=== PATIENT | female | born 1995 | race Caucasian/White ===

== ENCOUNTER → 2016-10-29 | Outpatient (REF) | payer OTHER ==
[~2016-10-29] MED LIST: /MOM400 PO; ACET50TA PO; DOCU10ELUD PO; IBUP100SUS PO
== END ==
LOC: M SFHCLERA 11:19
PROVIDERS: ATTEND Nurse Practitioner Family
DX: J02.9 Acute pharyngitis, unspecified (principal); Z3A.11 11 weeks gestation of pregnancy

== ENCOUNTER 2016-11-13 20:18 | Emergency (ER) | payer OTHER ==
[2016-11-13] MEDS ORDERED: METOCLOPRAMIDE INJ 10MG/2ML VIAL (J2765) As Ordered ONE (23:11)
[2016-11-13 23:17] LABS: MEAN CORPUSCULAR VOLUME 85.8 fl (80.0-96.0); RED CELL DISTRIBUTION WIDTH 14.5 % (11.5-14.5); WHITE BLOOD COUNT 11.7 K/mm3 (4.0-10.0)
[2016-11-14] LABS: ALBUMIN 3.6 GM/DL (3.2-5.2); ALBUMIN/GLOBULIN RATIO 0.84 (1.00-1.93); ALKALINE PHOSPHATASE 81 U/L (45-117); ALT/SGPT 18 U/L (12-78); ANION GAP 9 MEQ/L (8-16); AST/SGOT 11 U/L (15-37); BILIRUBIN,TOTAL 0.5 MG/DL (0.2-1.0); BLOOD UREA NITROGEN 5 MG/DL (7-18); CALCIUM LEVEL 8.6 MG/DL (8.5-10.1); CARBON DIOXIDE LEVEL 25 MEQ/L (21-32); CHLORIDE LEVEL 103 MEQ/L (98-107); CREATININE FOR GFR 0.64 MG/DL (0.55-1.02); GLOMERULAR FILTRATION RATE > 60.0 (>60); GLUCOSE, FASTING 81 MG/DL (70-105); HCG, SERUM QUANTITATIVE 48169 MIU/ML; POTASSIUM SERUM 3.4 MEQ/L (3.5-5.1); SODIUM LEVEL 137 MEQ/L (136-145); TOTAL PROTEIN 7.9 GM/DL (6.4-8.2)
[2016-11-14] MEDS ORDERED: NITROFURANTOIN (MACROBID) 100 MG CAP As Ordered ONE (00:27)
--- NOTE | 2016-11-14 00:42 | EDDOCDS ---
Physician Documentation [facility] Name: Cheryl Pisano Age: 21 yrs Sex: Female : 1995 Arrival Date: 11/13/2016 Time: 20:18 Bed I6 / Private MD: Marbella Randall Disposition: 11/14/16 00:23 Discharged to Home/Self Care. Impression: related conditions, unspecified, first trimester, Urinary tract infection, site not specified, Pelvic and perineal pain. - Condition is Stable. - Discharge Instructions: Pelvic Pain, Female, First Trimester of , Jqvs-[id number], Urinary Tract Infection, Bsuw-[id number]. - Prescriptions for Macrobid 100 mg Oral Capsule - take 100 milligram by ORAL route every 12 hours for 10 days; 20 capsule. Reglan 10 mg Oral Tablet - take 1 tablet by ORAL route every 6 hours take 30 minutes before meals and at bedtime; 20 tablet. - Medication Reconciliation, Local Pharmacy Hours form. - Follow up: Raghav Olvera; When: 1 - 2 days; Reason: Further diagnostic work-up, Recheck today's complaints, Continuance of care. Follow up: Emergency Department; Reason: Worsening of conditions. - Problem is new. - Symptoms have improved. Historical: - Allergies: no known allergies; - Home Meds: 1. none - PMHx: none; - PSHx: Cholecystectomy; - Social history: Smoking status: Patient states was never smoker of tobacco. No barriers to communication noted, The patient speaks fluent Cypriot. - Family history: Not pertinent. - : The pt / caregiver states he / she is not on anticoagulants. Home medication list is obtained from the patient. - Exposure Risk Screening:: None identified. 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 5 in. (165.10 cm) (R); Pain 8; 11/14 00:30 BP 124 / 82; Pulse 61; Resp 18; Pulse Ox 97% on R/A; Pain 0/10; m 11/13 20:20 Body Mass Index 35.61 (97.07 kg, 165.10 cm) gr2 MDM: 11/13 22:50 IV Saline Lock ordered. ef1 22:50 Undress patient appropriately for examination ordered. ef1 22:50 NS 0.9% 1000 ml IV at bolus once ordered. ef1 22:50 Metoclopramide 10 mg IV at 40 mg/hr once over 15 mins ordered. ef1 22:51 Complete Blood Count Ordered. EDMS 22:51 Hcg, Serum Quantitative Ordered. EDMS 22:51 Urinalysis Ordered. EDMS 22:51 Complete Comphrensive Metabolic Ordered. EDMS 22:51 Urine Culture Ordered. EDMS 22:51 US 1st trimester Ordered. EDMS 22:51 Type & Screen Ordered. EDMS 23:12 Financial registration complete. [facility] 23:16 [facility] Payment Agreement was scanned into [employer] and attached to record. gjb 23:59 Complete Blood Count Reviewed. ef1 23:59 Urinalysis Reviewed. ef1 23:59 Type & Screen Reviewed. ef1 11/14 00:03 Complete Comphrensive Metabolic Reviewed. ef1 00:03 Hcg, Serum Quantitative Reviewed. ef1 00:21 Type & Screen Reviewed. ef1 00:23 Nitrofurantoin 100 mg PO once ordered. ef1 Administered Medications: 11/13 23:19 Drug: NS 0.9% 1000 ml [sodium chloride 0.9 % intravenous solution] Route: IV; Rate: slm bolus; Site: right antecubital; 23:19 Drug: Metoclopramide 10 mg [metoclopramide 5 mg/mL injection solution] Route: IV; Rate: slm 40 mg/hr; Infused Over: 15 mins; Site: right antecubital; 11/14 00:31 Follow up: Response: Nausea is resolved slm 00:31 Drug: Nitrofurantoin 100 mg Route: PO; af2 Signatures: Dispatcher [employer] EDMS Zohreh Samayoa PA-C PA-C ef1 Mandy CalixtoRN RN af2 Sara Garcíab Blaire Matta RN RN tm5 Fernanda Herrera LPN [facility] The chart was reviewed and I authenticate all verbal orders and agree with the evaluation and treatment provided.Attachments: 11/13 23:16 [facility] Payment Agreement gjb [facility]
--- NOTE | 2016-11-14 00:42 | EDDOCDS ---
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 Risk factors: the patient reports no vaginal bleeding. Adult Sepsis Screening: The patient does not have new or worsening altered mentation. Patient's respiratory rate is less than 22. Systolic blood pressure is greater than 100. Patient has a qSOFA score of 0- Negative Sepsis Screen. Suicide/Homicide risk assessment- the patient denies having any suicidal and/or homicidal ideations and does not present with any other emotional, behavioral or mental health complaints. 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 Transition of care: patient was not received from another setting of care. 20:23 Acuity: BERNARDA Level 3 tm5 20:23 Method Of Arrival: Walkin/Carried/Asstd tm5 Triage Assessment: 20:26 General: Appears. General: Appears in no apparent distress, Behavior is appropriate for tm5 age, cooperative. Pain: Location: right lower quadrant and left lower quadrant, LOWER PELVIC AREA Pain currently is 8 out of 10 on a pain scale. Quality of pain is described as sharp. Pt Declines HIV testing. Neurological: Level of Consciousness is awake, alert, Oriented to person, place, time. Respiratory: Airway is patent Respiratory effort is even, unlabored, Respiratory pattern is regular, symmetrical. GI: Abdomen is non- distended Reports lower abdominal pain, nausea, vomiting. : No deficits noted. Derm: Skin is pink, warm & dry. normal. 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 none - PMHx: none; - PSHx: Cholecystectomy; - Social history: Smoking status: Patient states was never smoker of tobacco. No barriers to communication noted, The patient speaks fluent Mohawk. - Family history: Not pertinent. - : The pt / caregiver states he / she is not on anticoagulants. Home medication list is obtained from the patient. - Exposure Risk Screening:: None identified. Screenin:29 Screening information is obtained from the patient. Fall risk: No risks identified. tm5 Assistance ADL's: requires no assistance with activities of daily living. Abuse/DV Screen: The patient / caregiver reports he/she is: not in a situation that causes fear, pain or injury. Nutritional screening: No deficits noted. Advance Directives: There is no active DNR order. home support is adequate. Assessment: 23:19 General: Appears in no apparent distress, comfortable, Behavior is cooperative. slm General: pt c/o nausea and vomiting reports x13 weeks no active vomiting at this time . Derm: Skin is pink, warm & dry. Vital Signs: 20:20 BP 116 / 64; Pulse 90; Resp 18 S; Temp 97.4(O); Pulse Ox 100% on R/A; Weight 97.07 kg gr2 (M); Height 5 ft. 5 in. (165.10 cm) (R); Pain 8/10; 11/14 00:30 BP 124 / 82; Pulse 61; Resp 18; Pulse Ox 97% on R/A; Pain 0/10; slm 11/13 20:20 Body Mass Index 35.61 (97.07 kg, 165.10 cm) gr2 Vitals: 11/13 20:20 Log In Time: November 13, 2016 at 20:20. gr2 ED Course: 20:20 Patient visited by Aj Georges. gr2 20:20 Marbella Randall RNNP is Private Physician. gr2 20:20 Patient moved to Waiting gr2 20:23 Patient visited by Aj Georges. gr2 20:23 Patient moved to Pre RCE gr2 20:25 Triage Initiated tm5 22:15 Patient moved to Triage 3 ck1 22:18 Patient visited by Billie Cesar RN. ck1 22:42 Zohreh Samayoa PA-C is PHCP. ef1 22:42 Clyde Pickard DO is Attending Physician. ef1 22:42 Patient visited by Zohreh Samayoa PA-C. ef1 22:53 Patient moved to nn1 23:02 Patient visited by Zohreh Samayoa PA-C. ef1 23:07 Fernanda Herrear LPN is Primary Nurse. slm 23:07 Complete Comphrensive Metabolic Sent. slm 23:07 Complete Blood Count Sent. slm 23:07 Hcg, Serum Quantitative Sent. slm 23:08 Patient visited by Fernanda Herrera LPN. slm 23:08 Type & Screen Sent. slm 23:08 Inserted saline lock: 20 gauge in right antecubital area and blood collected. The sl patient tolerated the procedure well. 23:16 [facility] Payment Agreement was scanned into [employer] and attached to record. gjb 23:20 Patient visited by Fernanda Herrera LPN. slm 23:31 Patient visited by Zohreh Samayoa PA-C. ef1 23:58 Patient visited by Zohreh Samayoa PA-C. ef1 11/14 00:18 Patient visited by Zohreh Samayoa PA-C. ef1 00:23 Raghav Olvera MD is Referral Physician. ef1 00:30 Discontinued lock intact, bleeding controlled, pressure dressing applied, No slm redness/swelling at site. No procedures done that require assistance. 00:31 Patient visited by Fernanda Herrera LPN. slm 00:41 The patient / caregiver is instructed regarding the plan of care and ED course. af2 Administered Medications: 11/13 23:19 Drug: NS 0.9% 1000 ml [sodium chloride 0.9 % intravenous solution] Route: IV; Rate: slm bolus; Site: right antecubital; 23:19 Drug: Metoclopramide 10 mg [metoclopramide 5 mg/mL injection solution] Route: IV; Rate: slm 40 mg/hr; Infused Over: 15 mins; Site: right antecubital; 11/14 00:31 Follow up: Response: Nausea is resolved slm 00:31 Drug: Nitrofurantoin 100 mg Route: PO; af2 Order Results: Lab Order: Complete Blood Count; SPEC'M 11/13/16 22:59 Test: WHITE BLOOD COUNT; Value: 11.7; Range: 4.0-10.0; Abnormal: Above high normal; Units: K/mm3; Status: F Test: RED BLOOD COUNT; Value: 4.64; Range: 4.00-5.40; Units: M/mm3; Status: F Test: HEMOGLOBIN; Value: 13.9; Range: 12.0-16.0; Units: g/dl; Status: F Test: HEMATOCRIT; Value: 39.8; Range: 36.0-47.0; Units: %; Status: F Test: MEAN CORPUSCULAR VOLUME; Value: 85.8; Range: 80.0-96.0; Units: fl; Status: F Test: MEAN CORPUSCULAR HEMOGLOBIN; Value: 30.0; Range: 27.0-33.0; Units: pg; Status: F Test: MEAN CORPUSCULAR HGB CONC; Value: 35.0; Range: 32.0-36.5; Units: g/dl; Status: F Test: RED CELL DISTRIBUTION WIDTH; Value: 14.5; Range: 11.5-14.5; Units: %; Status: F Test: PLATELET COUNT, AUTOMATED; Value: 270; Range: 150-450; Units: k/mm3; Status: F Lab Order: Hcg, Serum Quantitative; [facility] 11/13/16 22:59 Test: HCG, SERUM QUANTITATIVE; Value: 51404; Units: MIU/ML; Status: F Test Note: ; GESTATIONAL AGE APPROXIMATE HCG RANGE (MIU/ML) 0.2-1 WEEK 5-50 1-2 WEEKS 50-500 2-3 WEEKS 100-5,000 3-4 WEEKS 500-10,000 4-5 WEEKS 1,000-50,000 5-6 WEEKS 10,000-100,000 6-8 WEEKS 15,000-200,000 2-3 MONTHS 10,000-100,000 NON FEMALES LESS THAN 3.0 Patient samples may contain human heterophilic antibodies that could react with immunoassays to give falsely elevated or depressed results. This assay has been designed to minimize interference from heterophilic antibodies. Elevated hCG levels have also been associated with trophoblastic disease and nontrophoblastic neoplasms. The possibility of having these diseases should be considered before a diagnosis of is made. This test is not intended for use as a surrogate marker for aiding in the diagnosis or monitoring the treatment of cancer patients. [employer] methodology. Lab Order: Type & Screen; SPEC'M 11/13/16 22:59 Test: BLOOD TYPE; Value: O POS; Status: F Test: AB SCREEN (INDIRECT JACINTO)GEL; Value: NEGATIVE; Status: F Lab Order: Urinalysis; SPEC'M 11/13/16 22:55 Test: APPEARANCE, URINE; Value: HAZY; Range: CLEAR; Status: F Test: COLOR, URINE; Value: YELLOW; Range: YELLOW; Status: F Test: PH,URINE; Value: 6.0; Range: 5.0-9.0; Units: UNITS; Status: F Test: SPECIFIC GRAVITY URINE AUTO; Value: 1.024; Range: 1.002-1.035; Status: F Test: PROTEIN, URINE AUTO; Value: NEGATIVE; Range: NEGATIVE; Units: mg/dL; Status: F Test: GLUCOSE, URINE (UA) AUTO; Value: NEGATIVE; Range: NEGATIVE; Units: mg/dL; Status: F Test: KETONE, URINE AUTO; Value: 2+; Range: NEGATIVE; Abnormal: Above high normal; Units: mg/dL; Status: F Test: UROBILINOGEN, URINE AUTO; Value: 0.2; Range: 0.0-2.0; Units: mg/dL; Status: F Test: BILIRUBIN, URINE AUTO; Value: NEGATIVE; Range: NEGATIVE; Status: F Test: NITRITE, URINE AUTO; Value: NEGATIVE; Range: NEGATIVE; Status: F Test: LEUKOCYTE ESTERASE, URINE AUTO; Value: TRACE; Range: NEGATIVE; Abnormal: Above high normal; Status: F Test: BLOOD, URINE BLOOD; Value: NEGATIVE; Range: NEGATIVE; Status: F Test: WBC, URINE AUTO; Value: 3; Range: 0-3; Units: /HPF; Status: F Test: RBC, URINE AUTO; Value: 3; Range: 0-3; Units: /HPF; Status: F Test: BACTERIA, URINE AUTO; Value: NEGATIVE; Range: NEGATIVE; Status: F Test: SQUAMOUS EPITHELIAL CELL UR AU; Value: 1; Range: 0-6; Units: /HPF; Status: F Test: MUCUS, URINE; Value: MODERATE; Range: NEGATIVE; Status: F Test: HYALINE CAST, URINE AUTO; Value: 0; Range: 0-1; Units: /LPF; Status: F Lab Order: Complete Comphrensive Metabolic; SPEC'M 11/13/16 22:59 Test: GLUCOSE, FASTING; Value: 81; Range: 70-105; Units: MG/DL; Status: F Test: BLOOD UREA NITROGEN; Value: 5; Range: 7-18; Abnormal: Below low normal; Units: MG/DL; Status: F Test: CREATININE FOR GFR; Value: 0.64; Range: 0.55-1.02; Units: MG/DL; Status: F Test: GLOMERULAR FILTRATION RATE; Value: > 60.0; Range: >60; Status: F Test: SODIUM LEVEL; Value: 137; Range: 136-145; Units: MEQ/L; Status: F Test: POTASSIUM SERUM; Value: 3.4; Range: 3.5-5.1; Abnormal: Below low normal; Units: MEQ/L; Status: F Test: CHLORIDE LEVEL; Value: 103; Range: 98-107; Units: MEQ/L; Status: F Test: CARBON DIOXIDE LEVEL; Value: 25; Range: 21-32; Units: MEQ/L; Status: F Test: ANION GAP; Value: 9; Range: 8-16; Units: MEQ/L; Status: F Test: CALCIUM LEVEL; Value: 8.6; Range: 8.5-10.1; Units: MG/DL; Status: F Test: AST/SGOT; Value: 11; Range: 15-37; Abnormal: Below low normal; Units: U/L; Status: F Test: ALT/SGPT; Value: 18; Range: 12-78; Units: U/L; Status: F Test: ALKALINE PHOSPHATASE; Value: 81; Range: 45-117; Units: U/L; Status: F Test: BILIRUBIN,TOTAL; Value: 0.5; Range: 0.2-1.0; Units: MG/DL; Status: F Test: TOTAL PROTEIN; Value: 7.9; Range: 6.4-8.2; Units: GM/DL; Status: F Test: ALBUMIN; Value: 3.6; Range: 3.2-5.2; Units: GM/DL; Status: F Test: ALBUMIN/GLOBULIN RATIO; Value: 0.84; Range: 1.00-1.93; Abnormal: Below low normal; Status: F Test Note: ; Units are mL/min/1.73 m2 Chronic Kidney Disease Staging per NKF: Stage I & II GFR >=60 Normal to Mildly Decreased Stage III GFR 30-59 Moderately Decreased Stage IV GFR 15-29 Severely Decreased Stage V GFR <15 Very Little GFR Left ESRD GFR <15 on OPTOMETRIST ASSISTANT Outcome: 00:23 Discharge ordered by Provider. ef1 00:40 Discharge Assessment: Patient awake, alert and oriented x 3. No cognitive and/or af2 functional deficits noted. Patient verbalized understanding of disposition instructions. patient administered narcotics - yes. Pt provided with safe discharge. The following High Risk Discharge criteria are identified: None. Discharged to home ambulatory, with parent. Condition: stable. Discharge instructions given to patient, Instructed on discharge instructions, follow up and referral plans. medication usage, no driving heavy equipment, no drinking with medication, Demonstrated understanding of instructions, medications, Pt was receptive of discharge instructions/ teaching. No special radiology studies were completed. Property :Personal belongings accompany Pt. 00:41 Patient left the ED. af2 Signatures: Billie Cesar,RN RN ck1 Zohreh Samayoa PA-C PA-C ef1 Aj Georges gr2 Fernanda Herrera LPN LPN slm F[place]on, Amber, RN RN af2 Mario Yarbrough RN RN ernesto1 Sara aGrcía Blaire Matta,RN RN tm5 MTDD
--- NOTE | 2016-11-14 01:00 | REPUSA ---
CLINICAL HISTORY: determination. TECHNIQUE: Transabdominal ultrasound of the pelvis was performed. FINDINGS: Single, live intrauterine gestation. Estimated gestational age is 12 weeks and 2 days. [place]-rump pb gth 5.7 cm. heart rate 157 beats per minute. motion was observed. No evidence of subchori onic hemorrhage. Anterior placenta. Unremarkable maternal adnexa. IMPRESSION: Single, live intrauterine gestation. No abnormality is seen.
--- NOTE | 2016-11-16 01:42 | EDDOCDS ---
Physician Documentation [facility] Name: Cheryl Pisano Age: 21 yrs Sex: Female : 1995 Arrival Date: 11/13/2016 Time: 20:18 Bed I6 / Private MD: Marbella Randall Disposition: 11/14/16 00:23 Discharged to Home/Self Care. Impression: related conditions, unspecified, first trimester, Urinary tract infection, site not specified, Pelvic and perineal pain. - Condition is Stable. - Discharge Instructions: Pelvic Pain, Female, First Trimester of , [id number], Urinary Tract Infection, Tyjl-[id number]-[id number]. - Prescriptions for Macrobid 100 mg Oral Capsule - take 100 milligram by ORAL route every 12 hours for 10 days; 20 capsule. Reglan 10 mg Oral Tablet - take 1 tablet by ORAL route every 6 hours take 30 minutes before meals and at bedtime; 20 tablet. - Medication Reconciliation, Local Pharmacy Hours form. - Follow up: Raghav Olvera; When: 1 - 2 days; Reason: Further diagnostic work-up, Recheck today's complaints, Continuance of care. Follow up: Emergency Department; Reason: Worsening of conditions. - Problem is new. - Symptoms have improved. Historical: - Allergies: no known allergies; - Home Meds: 1. none - PMHx: none; - PSHx: Cholecystectomy; - Social history: Smoking status: Patient states was never smoker of tobacco. No barriers to communication noted, The patient speaks fluent Argentine. - Family history: Not pertinent. - : The pt / caregiver states he / she is not on anticoagulants. Home medication list is obtained from the patient. - Exposure Risk Screening:: None identified. 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 5 in. (165.10 cm) (R); Pain 8; 11/14 00:30 BP 124 / 82; Pulse 61; Resp 18; Pulse Ox 97% on R/A; Pain 0/10; [facility] 11/13 20:20 Body Mass Index 35.61 (97.07 kg, 165.10 cm) gr2 MDM: 11/13 22:50 IV Saline Lock ordered. ef1 22:50 Undress patient appropriately for examination ordered. ef1 22:50 NS 0.9% 1000 ml IV at bolus once ordered. ef1 22:50 Metoclopramide 10 mg IV at 40 mg/hr once over 15 mins ordered. ef1 22:51 Complete Blood Count Ordered. EDMS 22:51 Hcg, Serum Quantitative Ordered. EDMS 22:51 Urinalysis Ordered. EDMS 22:51 Complete Comphrensive Metabolic Ordered. EDMS 22:51 Urine Culture Ordered. EDMS 22:51 US 1st trimester Ordered. EDMS 22:51 Type & Screen Ordered. EDMS 23:12 Financial registration complete. gjb 23:16 [facility] Payment Agreement was scanned into [employer] and attached to record. gjb 23:59 Complete Blood Count Reviewed. ef1 23:59 Urinalysis Reviewed. ef1 23:59 Type & Screen Reviewed. ef1 11/14 00:03 Complete Comphrensive Metabolic Reviewed. ef1 00:03 Hcg, Serum Quantitative Reviewed. ef1 00:21 Type & Screen Reviewed. ef1 00:23 Nitrofurantoin 100 mg PO once ordered. ef1 09:57 T-Sheet-- Draft Copy was scanned into [employer] and attached to record. gb Administered Medications: 11/13 23:19 Drug: NS 0.9% 1000 ml [sodium chloride 0.9 % intravenous solution] Route: IV; Rate: slm bolus; Site: right antecubital; 23:19 Drug: Metoclopramide 10 mg [metoclopramide 5 mg/mL injection solution] Route: IV; Rate: slm 40 mg/hr; Infused Over: 15 mins; Site: right antecubital; 11/14 00:31 Follow up: Response: Nausea is resolved slm 00:31 Drug: Nitrofurantoin 100 mg Route: PO; af2 Signatures: Dispatcher [employer] EDMS Brittani Gonzales, Porter Reg gb Zohreh Samayoa, PA-C PA-C ef1 Mandy Calixto RN RN af2 Sara García gjb Blaire Matta RN RN tm5 Fernanda Herrera LPN slm The chart was reviewed and I authenticate all verbal orders and agree with the evaluation and treatment provided.Attachments: 11/13 23:16 [facility] Payment Agreement gjb 11/14 09:57 T-Sheet-- Draft Copy gb Chart Complete MTDD
--- NOTE | 2016-11-16 01:43 | EDDOCDS ---
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 Risk factors: the patient reports no vaginal bleeding. Adult Sepsis Screening: The patient does not have new or worsening altered mentation. Patient's respiratory rate is less than 22. Systolic blood pressure is greater than 100. Patient has a qSOFA score of 0- Negative Sepsis Screen. Suicide/Homicide risk assessment- the patient denies having any suicidal and/or homicidal ideations and does not present with any other emotional, behavioral or mental health complaints. Status: Patient is not a guest services coordinator or dependent. Transition of care: patient was not received from another setting of care. 20:23 Acuity: BERNARDA Level 3 tm5 20:23 Method Of Arrival: Walkin/Carried/Asstd tm5 Triage Assessment: 20:26 General: Appears. General: Appears in no apparent distress, Behavior is appropriate for tm5 age, cooperative. Pain: Location: right lower quadrant and left lower quadrant, LOWER PELVIC AREA Pain currently is 8 out of 10 on a pain scale. Quality of pain is described as sharp. Pt Declines HIV testing. Neurological: Level of Consciousness is awake, alert, Oriented to person, place, time. Respiratory: Airway is patent Respiratory effort is even, unlabored, Respiratory pattern is regular, symmetrical. GI: Abdomen is non- distended Reports lower abdominal pain, nausea, vomiting. : No deficits noted. Derm: Skin is pink, warm & dry. normal. HYDRAULIC PRESS OPERATOR: 20:26 LMP 09/09/2016, Verified, EDC 06/16/2017, Gestational age from LMP: 9 weeks 3 tm5 days Historical: - Allergies: no known allergies; - Home Meds: 1. none - PMHx: none; - PSHx: Cholecystectomy; - Social history: Smoking status: Patient states was never smoker of tobacco. No barriers to communication noted, The patient speaks fluent Persian. - Family history: Not pertinent. - : The pt / caregiver states he / she is not on anticoagulants. Home medication list is obtained from the patient. - Exposure Risk Screening:: None identified. Screenin:29 Screening information is obtained from the patient. Fall risk: No risks identified. tm5 Assistance ADL's: requires no assistance with activities of daily living. Abuse/DV Screen: The patient / caregiver reports he/she is: not in a situation that causes fear, pain or injury. Nutritional screening: No deficits noted. Advance Directives: There is no active DNR order. home support is adequate. Assessment: 23:19 General: Appears in no apparent distress, comfortable, Behavior is cooperative. slm General: pt c/o nausea and vomiting reports x13 weeks no active vomiting at this time . Derm: Skin is pink, warm & dry. Vital Signs: 20:20 BP 116 / 64; Pulse 90; Resp 18 S; Temp 97.4(O); Pulse Ox 100% on R/A; Weight 97.07 kg gr2 (M); Height 5 ft. 5 in. (165.10 cm) (R); Pain 8/10; 11/14 00:30 BP 124 / 82; Pulse 61; Resp 18; Pulse Ox 97% on R/A; Pain 0/10; slm 11/13 20:20 Body Mass Index 35.61 (97.07 kg, 165.10 cm) gr2 Vitals: 11/13 20:20 Log In Time: November 13, 2016 at 20:20. gr2 ED Course: 20:20 Patient visited by Aj Georges. gr2 20:20 Marbella Randall RNNP is Private Physician. gr2 20:20 Patient moved to Waiting gr2 20:23 Patient visited by Aj Georges. gr2 20:23 Patient moved to Pre RCE gr2 20:25 Triage Initiated tm5 22:15 Patient moved to Triage 3 ck1 22:18 Patient visited by Billie Cesar RN. ck1 22:42 Zohreh Samayoa PA-C is PHCP. ef1 22:42 Clyde Pickard DO is Attending Physician. ef1 22:42 Patient visited by Zohreh Samayoa PA-C. ef1 22:53 Patient moved to nn1 23:02 Patient visited by Zohreh Samayoa PA-C. ef1 23:07 Fernanda Herrera LPN is Primary Nurse. slm 23:07 Complete Comphrensive Metabolic Sent. slm 23:07 Complete Blood Count Sent. slm 23:07 Hcg, Serum Quantitative Sent. slm 23:08 Patient visited by Fernanda Herrera LPN. slm 23:08 Type & Screen Sent. slm 23:08 Inserted saline lock: 20 gauge in right antecubital area and blood collected. The slm patient tolerated the procedure well. 23:16 [facility] Payment Agreement was scanned into [employer] and attached to record. gjb 23:20 Patient visited by Fernanda Herrera LPN. slm 23:31 Patient visited by Zohreh Samayoa PA-C. ef1 23:58 Patient visited by Zohreh Samayoa PA-C. ef1 11/14 00:18 Patient visited by Zohreh Samayoa PA-C. ef1 00:23 Raghav Olvera MD is Referral Physician. ef1 00:30 Discontinued lock intact, bleeding controlled, pressure dressing applied, No slm redness/swelling at site. No procedures done that require assistance. 00:31 Patient visited by Fernanda Herrera LPN. slm 00:41 The patient / caregiver is instructed regarding the plan of care and ED course. af2 01:18 US 1st trimester Returned. EDMS 09:57 T-Sheet-- Draft Copy was scanned into [employer] and attached to record. gb Administered Medications: 11/13 23:19 Drug: NS 0.9% 1000 ml [sodium chloride 0.9 % intravenous solution] Route: IV; Rate: slm bolus; Site: right antecubital; 23:19 Drug: Metoclopramide 10 mg [metoclopramide 5 mg/mL injection solution] Route: IV; Rate: slm 40 mg/hr; Infused Over: 15 mins; Site: right antecubital; 11/14 00:31 Follow up: Response: Nausea is resolved slm 00:31 Drug: Nitrofurantoin 100 mg Route: PO; af2 Order Results: Lab Order: Complete Blood Count; [facility] 11/13/16 22:59 Test: WHITE BLOOD COUNT; Value: 11.7; Range: 4.0-10.0; Abnormal: Above high normal; Units: K/mm3; Status: F Test: RED BLOOD COUNT; Value: 4.64; Range: 4.00-5.40; Units: M/mm3; Status: F Test: HEMOGLOBIN; Value: 13.9; Range: 12.0-16.0; Units: g/dl; Status: F Test: HEMATOCRIT; Value: 39.8; Range: 36.0-47.0; Units: %; Status: F Test: MEAN CORPUSCULAR VOLUME; Value: 85.8; Range: 80.0-96.0; Units: fl; Status: F Test: MEAN CORPUSCULAR HEMOGLOBIN; Value: 30.0; Range: 27.0-33.0; Units: pg; Status: F Test: MEAN CORPUSCULAR HGB CONC; Value: 35.0; Range: 32.0-36.5; Units: g/dl; Status: F Test: RED CELL DISTRIBUTION WIDTH; Value: 14.5; Range: 11.5-14.5; Units: %; Status: F Test: PLATELET COUNT, AUTOMATED; Value: 270; Range: 150-450; Units: k/mm3; Status: F Lab Order: Hcg, Serum Quantitative; [facility] 11/13/16 22:59 Test: HCG, SERUM QUANTITATIVE; Value: 01536; Units: MIU/ML; Status: F Test Note: ; GESTATIONAL AGE APPROXIMATE HCG RANGE (MIU/ML) 0.2-1 WEEK 5-50 1-2 WEEKS 50-500 2-3 WEEKS 100-5,000 3-4 WEEKS 500-10,000 4-5 WEEKS 1,000-50,000 5-6 WEEKS 10,000-100,000 6-8 WEEKS 15,000-200,000 2-3 MONTHS 10,000-100,000 NON FEMALES LESS THAN 3.0 Patient samples may contain human heterophilic antibodies that could react with immunoassays to give falsely elevated or depressed results. This assay has been designed to minimize interference from heterophilic antibodies. Elevated hCG levels have also been associated with trophoblastic disease and nontrophoblastic neoplasms. The possibility of having these diseases should be considered before a diagnosis of is made. This test is not intended for use as a surrogate marker for aiding in the diagnosis or monitoring the treatment of cancer patients. Siemens JibJab methodology. Lab Order: Type & Screen; [facility] 11/13/16 22:59 Test: BLOOD TYPE; Value: O POS; Status: F Test: AB SCREEN (INDIRECT JACINTO)GEL; Value: NEGATIVE; Status: F Lab Order: Urinalysis; [facility] 11/13/16 22:55 Test: APPEARANCE, URINE; Value: HAZY; Range: CLEAR; Status: F Test: COLOR, URINE; Value: YELLOW; Range: YELLOW; Status: F Test: PH,URINE; Value: 6.0; Range: 5.0-9.0; Units: UNITS; Status: F Test: SPECIFIC GRAVITY URINE AUTO; Value: 1.024; Range: 1.002-1.035; Status: F Test: PROTEIN, URINE AUTO; Value: NEGATIVE; Range: NEGATIVE; Units: mg/dL; Status: F Test: GLUCOSE, URINE (UA) AUTO; Value: NEGATIVE; Range: NEGATIVE; Units: mg/dL; Status: F Test: KETONE, URINE AUTO; Value: 2+; Range: NEGATIVE; Abnormal: Above high normal; Units: mg/dL; Status: F Test: UROBILINOGEN, URINE AUTO; Value: 0.2; Range: 0.0-2.0; Units: mg/dL; Status: F Test: BILIRUBIN, URINE AUTO; Value: NEGATIVE; Range: NEGATIVE; Status: F Test: NITRITE, URINE AUTO; Value: NEGATIVE; Range: NEGATIVE; Status: F Test: LEUKOCYTE ESTERASE, URINE AUTO; Value: TRACE; Range: NEGATIVE; Abnormal: Above high normal; Status: F Test: BLOOD, URINE BLOOD; Value: NEGATIVE; Range: NEGATIVE; Status: F Test: WBC, URINE AUTO; Value: 3; Range: 0-3; Units: /HPF; Status: F Test: RBC, URINE AUTO; Value: 3; Range: 0-3; Units: /HPF; Status: F Test: BACTERIA, URINE AUTO; Value: NEGATIVE; Range: NEGATIVE; Status: F Test: SQUAMOUS EPITHELIAL CELL UR AU; Value: 1; Range: 0-6; Units: /HPF; Status: F Test: MUCUS, URINE; Value: MODERATE; Range: NEGATIVE; Status: F Test: HYALINE CAST, URINE AUTO; Value: 0; Range: 0-1; Units: /LPF; Status: F Lab Order: Urine Culture; [facility] 11/13/16 22:55 Test: URINE CULTURE; Value: URINE CULTURE RESULT NO GROWTH; Status: F Lab Order: Complete Comphrensive Metabolic; [facility] 11/13/16 22:59 Test: GLUCOSE, FASTING; Value: 81; Range: 70-105; Units: MG/DL; Status: F Test: BLOOD UREA NITROGEN; Value: 5; Range: 7-18; Abnormal: Below low normal; Units: MG/DL; Status: F Test: CREATININE FOR GFR; Value: 0.64; Range: 0.55-1.02; Units: MG/DL; Status: F Test: GLOMERULAR FILTRATION RATE; Value: > 60.0; Range: >60; Status: F Test: SODIUM LEVEL; Value: 137; Range: 136-145; Units: MEQ/L; Status: F Test: POTASSIUM SERUM; Value: 3.4; Range: 3.5-5.1; Abnormal: Below low normal; Units: MEQ/L; Status: F Test: CHLORIDE LEVEL; Value: 103; Range: 98-107; Units: MEQ/L; Status: F Test: CARBON DIOXIDE LEVEL; Value: 25; Range: 21-32; Units: MEQ/L; Status: F Test: ANION GAP; Value: 9; Range: 8-16; Units: MEQ/L; Status: F Test: CALCIUM LEVEL; Value: 8.6; Range: 8.5-10.1; Units: MG/DL; Status: F Test: AST/SGOT; Value: 11; Range: 15-37; Abnormal: Below low normal; Units: U/L; Status: F Test: ALT/SGPT; Value: 18; Range: 12-78; Units: U/L; Status: F Test: ALKALINE PHOSPHATASE; Value: 81; Range: 45-117; Units: U/L; Status: F Test: BILIRUBIN,TOTAL; Value: 0.5; Range: 0.2-1.0; Units: MG/DL; Status: F Test: TOTAL PROTEIN; Value: 7.9; Range: 6.4-8.2; Units: GM/DL; Status: F Test: ALBUMIN; Value: 3.6; Range: 3.2-5.2; Units: GM/DL; Status: F Test: ALBUMIN/GLOBULIN RATIO; Value: 0.84; Range: 1.00-1.93; Abnormal: Below low normal; Status: F Test Note: ; Units are mL/min/1.73 m2 Chronic Kidney Disease Staging per NKF: Stage I & II GFR >=60 Normal to Mildly Decreased Stage III GFR 30-59 Moderately Decreased Stage IV GFR 15-29 Severely Decreased Stage V GFR <15 Very Little GFR Left ESRD GFR <15 on MEAT CLERK Radiology Order: US 1st trimester Test: US 1st trimester REASON FOR EXAMINATION: pelvic pain, ; ; CLINICAL HISTORY: determination.; TECHNIQUE: Transabdominal ultrasound of the pelvis was performed.; FINDINGS:; Single, live intrauterine gestation. Estimated gestational age is 12 weeks and 2 days. [place]-rump pb; gth 5.7 cm. heart rate 157 beats per minute. motion was observed. No evidence of subchori; onic hemorrhage. Anterior placenta. Unremarkable maternal adnexa.; IMPRESSION:; Single, live intrauterine gestation.; No abnormality is seen.; ; Outcome: 00:23 Discharge ordered by Provider. ef1 00:40 Discharge Assessment: Patient awake, alert and oriented x 3. No cognitive and/or af2 functional deficits noted. Patient verbalized understanding of disposition instructions. patient administered narcotics - yes. Pt provided with safe discharge. The following High Risk Discharge criteria are identified: None. Discharged to home ambulatory, with parent. Condition: stable. Discharge instructions given to patient, Instructed on discharge instructions, follow up and referral plans. medication usage, no driving heavy equipment, no drinking with medication, Demonstrated understanding of instructions, medications, Pt was receptive of discharge instructions/ teaching. No special radiology studies were completed. Property :Personal belongings accompany Pt. 00:41 Patient left the ED. af2 Signatures: Dispatcher [employer] EDBrittani Lagunas, Reg Reg gb Tali,Billie,RN RN ck1 Zohreh Samayoa, JAKOBC PA-C ef1 Aj Georges gr2 Fernanda eHrrera,CRYSTAL MEADEN Mandy Yu,RN RN af2 Mario Yarbrough,RN RN nn1 Sara García Tonya,RN RN tm5 Chart Complete MTDD
--- NOTE | 2016-11-16 01:43 | EDDOCDS ---
Physician Documentation [facility] Name: Cheryl Pisano Age: 21 yrs Sex: Female : 1995 Arrival Date: 11/13/2016 Time: 20:18 Bed I6 / Private MD: Marbella Randall Disposition: 11/14/16 00:23 Discharged to Home/Self Care. Impression: related conditions, unspecified, first trimester, Urinary tract infection, site not specified, Pelvic and perineal pain. - Condition is Stable. - Discharge Instructions: Pelvic Pain, Female, First Trimester of , [id number], Urinary Tract Infection, [id number]. - Prescriptions for Macrobid 100 mg Oral Capsule - take 100 milligram by ORAL route every 12 hours for 10 days; 20 capsule. Reglan 10 mg Oral Tablet - take 1 tablet by ORAL route every 6 hours take 30 minutes before meals and at bedtime; 20 tablet. - Medication Reconciliation, Local Pharmacy Hours form. - Follow up: Raghav Olvera; When: 1 - 2 days; Reason: Further diagnostic work-up, Recheck today's complaints, Continuance of care. Follow up: Emergency Department; Reason: Worsening of conditions. - Problem is new. - Symptoms have improved. Historical: - Allergies: no known allergies; - Home Meds: 1. none - PMHx: none; - PSHx: Cholecystectomy; - Social history: Smoking status: Patient states was never smoker of tobacco. No barriers to communication noted, The patient speaks fluent [place]. - Family history: Not pertinent. - : The pt / caregiver states he / she is not on anticoagulants. Home medication list is obtained from the patient. - Exposure Risk Screening:: None identified. SWITCHER: 11/13 20:26 LMP 09/09/2016, Verified, EDC 06/16/2017, Gestational age from LMP: 9 weeks 3 tm5 days Vital Signs: 20:20 BP 116 / 64; Pulse 90; Resp 18 S; Temp 97.4(O); Pulse Ox 100% on R/A; Weight 97.07 kg / gr2 214 lbs (M); Height 5 ft. 5 in. (165.10 cm) (R); Pain 8; 11/14 00:30 BP 124 / 82; Pulse 61; Resp 18; Pulse Ox 97% on R/A; Pain 0/10; [facility] 11/13 20:20 Body Mass Index 35.61 (97.07 kg, 165.10 cm) gr2 MDM: 11/13 22:50 IV Saline Lock ordered. ef1 22:50 Undress patient appropriately for examination ordered. ef1 22:50 NS 0.9% 1000 ml IV at bolus once ordered. ef1 22:50 Metoclopramide 10 mg IV at 40 mg/hr once over 15 mins ordered. ef1 22:51 Complete Blood Count Ordered. EDMS 22:51 Hcg, Serum Quantitative Ordered. EDMS 22:51 Urinalysis Ordered. EDMS 22:51 Complete Comphrensive Metabolic Ordered. EDMS 22:51 Urine Culture Ordered. EDMS 22:51 US 1st trimester Ordered. EDMS 22:51 Type & Screen Ordered. EDMS 23:12 Financial registration complete. gjb 23:16 [facility] Payment Agreement was scanned into [employer] and attached to record. gjb 23:59 Complete Blood Count Reviewed. ef1 23:59 Urinalysis Reviewed. ef1 23:59 Type & Screen Reviewed. ef1 11/14 00:03 Complete Comphrensive Metabolic Reviewed. ef1 00:03 Hcg, Serum Quantitative Reviewed. ef1 00:21 Type & Screen Reviewed. ef1 00:23 Nitrofurantoin 100 mg PO once ordered. ef1 09:57 T-Sheet-- Draft Copy was scanned into [employer] and attached to record. gb Administered Medications: 11/13 23:19 Drug: NS 0.9% 1000 ml [sodium chloride 0.9 % intravenous solution] Route: IV; Rate: slm bolus; Site: right antecubital; 23:19 Drug: Metoclopramide 10 mg [metoclopramide 5 mg/mL injection solution] Route: IV; Rate: slm 40 mg/hr; Infused Over: 15 mins; Site: right antecubital; 11/14 00:31 Follow up: Response: Nausea is resolved slm 00:31 Drug: Nitrofurantoin 100 mg Route: PO; af2 Signatures: Dispatcher [employer] EDMS Brittani Gonzales, Porter Reg gb Zohreh Samayoa, PA-C PA-C ef1 Mandy Calixto RN RN af2 Sara García gjb Blaire Matta RN RN tm5 Fernanda Herrera LPN slm The chart was reviewed and I authenticate all verbal orders and agree with the evaluation and treatment provided.Attachments: 11/13 23:16 [facility] Payment Agreement gjb 11/14 09:57 T-Sheet-- Draft Copy gb Chart Complete MTDD
== END 2016-11-14 00:41 | disposition home or self-care (01) ==
LOC: M ED 20:18
DX: O23.41 Unspecified infection of urinary tract in pregnancy, first trimester (principal); Z3A.09 9 weeks gestation of pregnancy
CPT/HCPCS: 36415; 76801; 80053; 81001; 84702; 85027; 86850; 86900; 86901; 87086; 96374; 99284; J2765

== ENCOUNTER → 2016-12-02 | Outpatient (REF) | payer OTHER ==
[2016-12-02 19:34] LABS: MEAN CORPUSCULAR HEMOGLOBIN 29.9 pg (27.0-33.0); MEAN CORPUSCULAR HGB CONC 33.3 g/dl (32.0-36.5); MEAN CORPUSCULAR VOLUME 89.6 fl (80.0-96.0); RED CELL DISTRIBUTION WIDTH 14.6 % (11.5-14.5); WHITE BLOOD COUNT 9.8 K/mm3 (4.0-10.0)
== END ==
LOC: M LAB REF 16:36
PROVIDERS: ATTEND Obstetrics & Gynecology
DX: Z36 Encounter for antenatal screening of mother (principal); Z3A.00 Weeks of gestation of pregnancy not specified

== ENCOUNTER 2016-12-25 18:56 | Emergency (ER) | payer OTHER ==
[~2016-12-25] VITALS: Ht 165.1 cm; Wt 97.5 kg
[~2016-12-25 18:56] MED LIST changes: -ZOFR4TAB3 PO
[2016-12-25] MEDS ORDERED: NS 1,000 ML IV ONE (22:45)
[2016-12-25] MEDS ORDERED: METOCLOPRAMIDE INJ 10MG/2ML VIAL (J2765) IV ONE (22:45)
[2016-12-25 23:12] LABS: BASO % 0.2 % (0.0-1.0); EOS # 0.2 K/mm3 (0.0-0.50); EOS % 1.5 % (0.0-3.0); LARGE UNSTAINED CELL # 0.2 K/mm3 (0.0-0.4); LARGE UNSTAINED CELL % 1.8 % (0.0-4.0); LYMPH # 2.2 K/mm3 (1.5-6.5); LYMPH % 20.1 % (24.0-44.0); MEAN CORPUSCULAR HEMOGLOBIN 29.9 pg (27.0-33.0); MEAN CORPUSCULAR HGB CONC 33.7 g/dl (32.0-36.5); MEAN CORPUSCULAR VOLUME 88.7 fl (80.0-96.0); MONO # 0.5 K/mm3 (0.0-0.8); NEUTROPHILS % 72.3 % (36.0-66.0); PLATELET COUNT, AUTOMATED 266 k/mm3 (150-450); RED CELL DISTRIBUTION WIDTH 14.2 % (11.5-14.5); WHITE BLOOD COUNT 11.1 K/mm3 (4.0-10.0)
[2016-12-25 23:37] LABS: ALBUMIN 3.3 GM/DL (3.2-5.2); ALBUMIN/GLOBULIN RATIO 0.72 (1.00-1.93); ALKALINE PHOSPHATASE 111 U/L (45-117); ALT/SGPT 17 U/L (12-78); ANION GAP 9 MEQ/L (8-16); AST/SGOT 9 U/L (15-37); BILIRUBIN,DIRECT 0.2 MG/DL (0.0-0.2); BILIRUBIN,TOTAL 0.7 MG/DL (0.2-1.0); BLOOD UREA NITROGEN 9 MG/DL (7-18); CARBON DIOXIDE LEVEL 24 MEQ/L (21-32); CHLORIDE LEVEL 103 MEQ/L (98-107); CREATININE FOR GFR 0.65 MG/DL (0.55-1.02); GLOMERULAR FILTRATION RATE > 60.0 (>60); GLUCOSE, FASTING 71 MG/DL (70-105); POTASSIUM SERUM 3.6 MEQ/L (3.5-5.1); SODIUM LEVEL 136 MEQ/L (136-145); TOTAL PROTEIN 7.9 GM/DL (6.4-8.2)
[2016-12-26 00:14] LABS: HCG, SERUM QUANTITATIVE 14926 MIU/ML
[2016-12-26] MEDS ORDERED: ZOFR4TAB3 PO (00:21)
[2016-12-26 00:28] VITALS: BP 121/71
--- NOTE | 2016-12-26 00:50 | REPUSA ---
CLINICAL HISTORY: Pelvic pain. TECHNIQUE: Realtime sonographic images were obtained in multiple projections via TA approach. The exa mination was performed by the stock order lister and still images were submitted for interpretation. COMMENTS: Single, live intrauterine gestation. Breech presentation. motion was identified. heart ra te 140 beats per minute. Anterior placenta. No evidence of placenta previa or placental abruption. Am niotic fluid is within normal limits. The cervix measures 3.1 cm in length. The lateral ventricle gilda sures 8.4 mm. No maternal adnexal mass lesion is noted. Estimated gestational age is 18 weeks and 2 d ays. Estimated delivery date on 05/26/17. gender was documented as made. Nuchal CORD was not seen . IMPRESSION: Single, live intrauterine gestation. No abnormality seen. Thank you for your kind referral of this patient.
== END 2016-12-26 00:35 | disposition home or self-care (01) ==
LOC: M ED 20:10
DX: O21.9 Vomiting of pregnancy, unspecified (principal); Z3A.18 18 weeks gestation of pregnancy; Z87.891 Personal history of nicotine dependence
CPT/HCPCS: 36415; 76811; 80048; 80076; 81001; 83690; 84702; 85025; 86850; 86900; 86901; 87086; 96374; 99283; J2765

== ENCOUNTER → 2016-12-25 | Outpatient (REF) | payer OTHER ==
[~2016-12-25] MED LIST changes: +ZOFR4TAB3 PO
== END ==
LOC: M SFHCLERA 18:39
PROVIDERS: ATTEND Nurse Practitioner Family
DX: R10.9 Unspecified abdominal pain (principal)

== ENCOUNTER 2017-03-11 14:01 | Outpatient (CLI) | payer OTHER ==
[~2017-03-11] VITALS: Ht 165.1 cm; Wt 99.0 kg
[~2017-03-11 14:01] MED LIST changes: +ZOFR4TAB3 PO
[2017-03-11 14:22] VITALS: BP 108/67
== END 2017-03-11 15:04 | disposition home or self-care (01) ==
LOC: M LDO 14:01
PROVIDERS: ATTEND Obstetrics & Gynecology
DX: O26.893 Other specified pregnancy related conditions, third trimester (principal); Z3A.29 29 weeks gestation of pregnancy

== ENCOUNTER → 2017-03-24 | Outpatient (REF) | payer OTHER | LOC: M LAB REF 16:26 | PROVIDERS: ATTEND Advanced Practice Midwife | DX: N76.0 Acute vaginitis (principal) ==

== ENCOUNTER → 2017-03-25 | Outpatient (CLI) | payer OTHER ==
[2017-03-25 13:45] LABS: MEAN CORPUSCULAR HEMOGLOBIN 30.1 pg (27.0-33.0); MEAN CORPUSCULAR HGB CONC 33.2 g/dl (32.0-36.5); MEAN CORPUSCULAR VOLUME 90.6 fl (80.0-96.0); RED CELL DISTRIBUTION WIDTH 13.7 % (11.5-14.5); WHITE BLOOD COUNT 11.8 K/mm3 (4.0-10.0)
[2017-03-25 13:56] LABS: ALT/SGPT 22 U/L (12-78); AST/SGOT 14 U/L (15-37); BILIRUBIN,TOTAL 0.5 MG/DL (0.2-1.0); CREATININE FOR GFR 0.59 MG/DL (0.55-1.02); GLOMERULAR FILTRATION RATE > 60.0 (>60); URIC ACID 3.2 MG/DL (2.6-6.0)
== END ==
LOC: M LAB 13:02
PROVIDERS: ATTEND Advanced Practice Midwife
DX: R03.0 Elevated blood-pressure reading, without diagnosis of hypertension (principal)

== ENCOUNTER → 2017-04-21 | Outpatient (REF) | payer OTHER | LOC: M LAB REF 17:15 | PROVIDERS: ATTEND Obstetrics & Gynecology | DX: Z34.83 Encounter for supervision of other normal pregnancy, third trimester (principal) ==

== ENCOUNTER → 2017-05-01 | Outpatient (REF) | payer OTHER ==
[~2017-05-01] MED LIST changes: +IBUP-1114 PO
== END ==
LOC: M SFHCLERA 16:06
PROVIDERS: ATTEND Physician Assistant
DX: J02.9 Acute pharyngitis, unspecified (principal)

== ENCOUNTER 2017-05-12 16:50 | Inpatient (IN) | payer OTHER ==
[~2017-05-12] VITALS: Ht 165.1 cm; Wt 100.0 kg
[~2017-05-12 16:50] MED LIST changes: -IBUP-1114 PO
[2017-05-12] MEDS ORDERED: LR 800 ML IV SCH (17:15)
[2017-05-12 17:24] VITALS: BP 112/60
[2017-05-12] MEDS ORDERED: LR 1,000 ML IV SCH (18:00)
[2017-05-12 18:25] LABS: ALBUMIN 2.6 GM/DL (3.2-5.2); ALBUMIN/GLOBULIN RATIO 0.74 (1.00-1.93); ALKALINE PHOSPHATASE 177 U/L (45-117); ALT/SGPT 28 U/L (12-78); ANION GAP 12 MEQ/L (8-16); AST/SGOT 19 U/L (15-37); BILIRUBIN,TOTAL 0.4 MG/DL (0.2-1.0); BLOOD UREA NITROGEN 6 MG/DL (7-18); CALCIUM LEVEL 8.8 MG/DL (8.5-10.1); CARBON DIOXIDE LEVEL 21 MEQ/L (21-32); CHLORIDE LEVEL 106 MEQ/L (98-107); CREATININE FOR GFR 0.62 MG/DL (0.55-1.02); GLOMERULAR FILTRATION RATE > 60.0 (>60); GLUCOSE, FASTING 65 MG/DL (70-105); MEAN CORPUSCULAR HEMOGLOBIN 29.9 pg (27.0-33.0); MEAN CORPUSCULAR HGB CONC 34.3 g/dl (32.0-36.5); MEAN CORPUSCULAR VOLUME 87.2 fl (80.0-96.0); RED CELL DISTRIBUTION WIDTH 15.2 % (11.5-14.5); SODIUM LEVEL 139 MEQ/L (136-145); TOTAL PROTEIN 6.1 GM/DL (6.4-8.2); WHITE BLOOD COUNT 12.2 K/mm3 (4.0-10.0)
[2017-05-12 18:36] VITALS: BP 119/75
[2017-05-13] MEDS ORDERED: OXYTOCIN 30 UNITS IN 0.9% NaCl 500ML IV BAG (J2590) As Ordered ONE (01:26)
[2017-05-13] MEDS ORDERED: IBUPROFEN 800 MG TAB As Ordered ONE (02:44)
--- NOTE | 2017-05-13 05:40 | HPE ---
DATE OF ADMISSION: 05/13/2017 HISTORY OF PRESENT ILLNESS: Cheryl is a 21-year-old female 3, para 2-0-0-2 with an estimated date of confinement (EDC) of 05/27/2017, estimated gestational age (EGA) at 38 weeks gestation. She presented to labor and delivery via ambulance after have an extramural delivery en route to the hospital. The patient was evaluated in labor and delivery earlier, was found to be in early labor and was sent home. She went home and began in active labor and on the way back to the hospital had an extramural delivery of a live female . Upon my arrival to labor and delivery, the placenta was delivered spontaneously intact. I then evaluated the vagina, cervix and the perineal body. There were bilateral periurethral lacerations noted with good hemostasis noted for repair. Her records reviewed which were essentially unremarkable. LABORATORIES: O positive, rubella immune, hepatitis negative, HIV negative, GC/chlamydia negative, One-hour sugar testing was within normal limit. Her GBS is negative. PAST MEDICAL HISTORY: Significant for asthma. PAST SURGICAL HISTORY: Gallbladder removal at age 12. SOCIAL HISTORY: She denies any alcohol or drug use. REVIEW OF SYSTEMS: Unremarkable. MEDICATIONS: vitamins ALLERGIES: No known drug allergies. PHYSICAL EXAMINATION ON ADMISSION: HEENT: Grossly within normal limits. ABDOMEN: Soft, nontender, nondistended. EXTREMITIES: No clubbing, cyanosis. VAGINAL EXAM: Done after removal of the placenta, the cervix, vagina and the perineal body were inspected. Bilateral periurethral laceration was noted with good hemostasis. No need for any repair. ASSESSMENT: Status post extramural delivery of a live female . PLAN: The patient will be admitted. The placenta was delivered spontaneously, cervix examined, Pitocin given via intravenous (IV) drip to prevent uterine atony. Both mother and baby in stable condition. She will be transferred when fully stable to maternity for maternity care.
[2017-05-13] MEDS ORDERED: MEASLES,MUMPS,RUBELLA VACCINE INJ (MMR-II) (90707) SQ SCH (06:00)
[2017-05-13] MEDS ORDERED: MOM 30ML SUSPENSION UDC PO PRN (06:00)
[2017-05-13] MEDS ORDERED: DOCUSATE SODIUM 100 MG CAP PO PRN (06:00)
[2017-05-13] MEDS ORDERED: IBUPROFEN 800 MG TAB PO PRN (06:00)
[2017-05-13] MEDS ORDERED: RHOGAM 300 MCG (1500 IU) INJ (J2790) IM SCH (06:00)
[2017-05-13] MEDS ORDERED: METHYLERGONOVINE MALEATE 0.2 MG TAB PO PRN (06:00)
[2017-05-13] MEDS ORDERED: ANUSOL HC CREAM 30GM TOP PRN (06:00)
[2017-05-13 07:52] VITALS: BP 121/73
[2017-05-13] MEDS: ACETAMINOPHEN 500 MG TAB PO PRN ×2 (09:23→20:33)
--- NOTE | 2017-05-13 09:45 | DN ---
DATE: 05/13/2017 Cheryl is a 21-year-old female, 3, para 2-0-0-2, at 38 weeks gestation who presented to the hospital via ambulance status post an extramural vaginal delivery en route to the hospital. Upon my evaluation of the patient, the placenta delivered spontaneously and intact. The perineum, vagina and cervix inspected. Small periurethral laceration noted with good hemostasis. Estimated blood loss was 250 mL. Both mother and baby appeared to be in stable condition. Pitocin drip given to prevent uterine atony.
[2017-05-13 11:25] LABS: HBSAG L&D NEGATIVE (NEGATIVE)
[2017-05-13 18:00] VITALS: BP 124/63
[2017-05-14 05:51] VITALS: BP 105/62
[2017-05-14] MEDS ORDERED: ACET50TA PO (08:55)
[2017-05-14] MEDS ORDERED: IBUP-1114 PO (08:57)
== END 2017-05-14 17:35 | disposition home or self-care (01) | DRG 561 ==
LOC: M LDO 16:50 → M LDI 05-13 → M OBS 05-13 09:01
PROVIDERS: ADMIT Obstetrics & Gynecology; ATTEND Obstetrics & Gynecology
DX: Z39.0 Encounter for care and examination of mother immediately after delivery (principal)

== ENCOUNTER → 2017-10-29 | Outpatient (REF) | payer OTHER | LOC: M SFHCLERA 15:57 | DX: J02.9 Acute pharyngitis, unspecified (principal) ==

== ENCOUNTER → 2018-07-19 | Outpatient (CLI) | payer OTHER | LOC: M LRY 18:23 | DX: J45.901 Unspecified asthma with (acute) exacerbation (principal) | CPT/HCPCS: 71046 ==

== ENCOUNTER → 2019-02-18 | Outpatient (REF) | payer OTHER ==
[~2019-02-18] MED LIST changes: -/MOM400 PO; -ACET50TA PO; -DOCU10ELUD PO; +DOCU5LIQ PO; +IBUP-1114 PO; +IBUP100S44 PO; -IBUP100SUS PO; +MAPA500T17 PO; +MAPA500T2 PO; +MILK10SU PO; +ZOFR4TAB14 PO; -ZOFR4TAB3 PO
[2019-02-18 21:13] LABS: FREE T4 1.05 NG/DL (0.76-1.46); THYROID STIMULATING HORMONE 2.65 uIU/ML (0.358-3.740)
[2019-02-18 21:15] LABS: BASO # 0.1 10^3/uL (0.0-0.2); BASO % 0.6 % (0.0-1.0); EOS # 0.5 10^3/uL (0.0-0.50); EOS % 4.5 % (0.0-3.0); HEMATOCRIT 43.6 % (36.0-47.0); HEMOGLOBIN 14.2 g/dl (12.0-15.5); LYMPH # 3.2 10^3/uL (1.5-6.5); LYMPH % 30.5 % (24.0-44.0); MEAN CORPUSCULAR HEMOGLOBIN 29.4 pg (27.0-33.0); MEAN CORPUSCULAR HGB CONC 32.6 g/dl (32.0-36.5); MEAN CORPUSCULAR VOLUME 90.3 fl (80.0-96.0); MONO # 0.9 10^3/uL (0.0-0.8); MONO % 8.1 % (0.0-5.0); NEUTROPHILS # 5.9 10^3/uL (1.8-7.7); NEUTROPHILS % 55.9 % (36.0-66.0); PLATELET COUNT, AUTOMATED 301 10^3/uL (150-450); RED BLOOD COUNT 4.83 10^6/uL (4.00-5.40); WHITE BLOOD COUNT 10.6 10^3/uL (4.0-10.0)
== END ==
LOC: M SFHCLERA 15:39
PROVIDERS: ATTEND Family Medicine
DX: Z13.29 Encounter for screening for other suspected endocrine disorder (principal); Z86.2 Personal history of diseases of the blood and blood-forming organs and certain disorders involving the immune mechanism

== ENCOUNTER → 2019-03-16 | Outpatient (REF) | payer OTHER | LOC: M SFHCLERA 12:08 | PROVIDERS: ATTEND Physician Assistant | DX: J02.9 Acute pharyngitis, unspecified (principal) ==

== ENCOUNTER → 2019-07-12 | Outpatient (REF) | payer OTHER ==
[2019-07-12 19:35] LABS: FREE T4 0.84 NG/DL (0.76-1.46); THYROID STIMULATING HORMONE 2.42 uIU/ML (0.358-3.740)
[2019-07-12 19:41] LABS: HEMOGLOBIN A1c 5.2 %
== END ==
LOC: M SFHCLERA 15:02
PROVIDERS: ATTEND Family Medicine
DX: E66.01 Morbid (severe) obesity due to excess calories (principal); J45.40 Moderate persistent asthma, uncomplicated

== ENCOUNTER → 2019-12-29 | Outpatient (CLI) | payer OTHER ==
--- NOTE | 2019-12-29 17:02 | REP ---
Left foot series: Four views. History: Injury. Findings: Four views of the left foot demonstrate plantar calcaneal spurring. Overall mineralization pattern is normal. No fracture or subluxation is seen. Impression: Negative radiographs of the left foot. No fracture seen. Electronically Signed by Tonio Mcgregor MD 12/29/2019 04:53 P
== END ==
LOC: M LRY 16:31
PROVIDERS: ATTEND Nurse Practitioner Family
DX: S99.922A Unspecified injury of left foot, initial encounter (principal); W18.30XA Fall on same level, unspecified, initial encounter; Y92.9 Unspecified place or not applicable

== ENCOUNTER → 2021-06-06 | Outpatient (REF) | payer OTHER | LOC: M LAB REF 16:53 | PROVIDERS: ATTEND Advanced Practice Midwife | DX: R10.30 Lower abdominal pain, unspecified (principal) ==

== ENCOUNTER → 2021-08-28 | Outpatient (CLI) | payer OTHER ==
[2021-08-28 11:20] LABS: BASO % 0.4 % (0.0-1.0); EOS # 0.2 10^3/uL (0.0-0.5); EOS % 1.4 % (0.0-3.0); LYMPH % 26.2 % (24.0-44.0); MEAN CORPUSCULAR HEMOGLOBIN 29.1 pg (27.0-33.0); MEAN CORPUSCULAR HGB CONC 32.5 g/dl (32.0-36.5); MEAN CORPUSCULAR VOLUME 89.7 fl (80.0-96.0); MONO # 0.9 10^3/uL (0.0-0.8); MONO % 8.2 % (2.0-8.0); NEUTROPHILS # 7.2 10^3/uL (1.5-8.5); NEUTROPHILS % 63.4 % (36.0-66.0); PLATELET COUNT, AUTOMATED 279 10^3/uL (150-450); RED BLOOD COUNT 4.46 10^6/uL (4.00-5.40); WHITE BLOOD COUNT 11.4 10^3/uL (4.0-10.0)
--- NOTE | 2021-08-28 11:24 | REP ---
INDICATION: ENCOUNTER FOR SCREENING FOR DIABETES MELLITUS. COMPARISON: 07/19/2018 the latest prior TECHNIQUE: PA and lateral FINDINGS: The superior mediastinal structures are midline. The cardiac silhouette is unremarkable in size, shape, and position. The diaphragmatic surfaces of the lungs are regular, and the costophrenic angles are clear. The pulmonary bae are clear. The imaged osseous structures are intact. IMPRESSION: There is no acute cardiopulmonary disease. <Electronically signed by Lázaro Ashford > 08/28/21 [id number]
[2021-08-28 11:55] LABS: HEMOGLOBIN A1c 5.2 %
[2021-08-28 12:13] LABS: ALBUMIN 3.4 GM/DL (3.2-5.2); ALT/SGPT 23 U/L (12-78); BILIRUBIN,TOTAL 0.6 MG/DL (0.2-1.0); BLOOD UREA NITROGEN 11 MG/DL (7-18); CALCIUM LEVEL 9.1 MG/DL (8.5-10.1); CARBON DIOXIDE LEVEL 28 MEQ/L (21-32); CHLORIDE LEVEL 106 MEQ/L (98-107); CHOLESTEROL LEVEL 142 MG/DL (<200); CHOLESTEROL RISK RATIO 3.736 (<5); CREATININE FOR GFR 0.78 MG/DL (0.55-1.30); GLOMERULAR FILTRATION RATE > 60.0 (>60); GLUCOSE, FASTING 85 MG/DL (70-100); HDL CHOLESTEROL 38 MG/DL (>40); LDL CHOLESTEROL 88 MG/DL (<100); NON-HDL-C 104 MG/DL; POTASSIUM SERUM 3.8 MEQ/L (3.5-5.1); SODIUM LEVEL 140 MEQ/L (136-145); TOTAL PROTEIN 7.2 GM/DL (6.4-8.2); TRIGLYCERIDES LEVEL 82 MG/DL (<150)
== END ==
LOC: M RAD 10:19
PROVIDERS: ATTEND Family Medicine
DX: Z13.1 Encounter for screening for diabetes mellitus (principal); Z13.220 Encounter for screening for lipoid disorders; F41.8 Other specified anxiety disorders; J45.909 Unspecified asthma, uncomplicated; Z83.49 Family history of other endocrine, nutritional and metabolic diseases

== ENCOUNTER 2023-02-27 21:50 | Emergency (ER) | payer OTHER ==
[~2023-02-27] VITALS: Ht 165.1 cm; Wt 118.2 kg
[2023-02-27] MEDS ORDERED: ACETAMINOPHEN TAB 650MG DOSE (2X325MG) PO ONE (22:30)
[2023-02-27] MEDS ORDERED: ONDANSETRON 4MG ORAL DISINTEGRATING TAB PO ONE (22:30)
[2023-02-28 00:04] VITALS: BP 149/90
== END 2023-02-28 00:05 | disposition home or self-care (01) ==
LOC: M ED 21:50 → EDBD 21:50 → M ED 02-28 00:05
DX: S00.83XA Contusion of other part of head, initial encounter (principal); S02.2XXA Fracture of nasal bones, initial encounter for closed fracture; Y04.0XXA Assault by unarmed brawl or fight, initial encounter; Y92.89 Other specified places as the place of occurrence of the external cause; Y93.89 Activity, other specified; Y99.8 Other external cause status; Z88.1 Allergy status to other antibiotic agents

== ENCOUNTER → 2023-03-13 | Outpatient (CLI) | payer OTHER ==
[2023-03-13 12:07] LABS: FREE T4 0.83 NG/DL (0.89-1.76); THYROID STIMULATING HORMONE 3.028 uIU/ML (0.55-4.78)
== END ==
LOC: M LAB 11:03
PROVIDERS: ATTEND Family Medicine
DX: E04.1 Nontoxic single thyroid nodule (principal)

== ENCOUNTER → 2023-03-31 | Outpatient (CLI) | payer OTHER | LOC: M RAD 12:18 | PROVIDERS: ATTEND Family Medicine | DX: E04.1 Nontoxic single thyroid nodule (principal) ==

== ENCOUNTER → 2023-08-29 | Outpatient (REF) | payer OTHER ==
[~2023-08-29] MED LIST changes: +ETON68IM SC; +IBUP-1022 PO
== END ==
LOC: M WUC 17:24
PROVIDERS: ATTEND Student in an Organized Health Care Education/Training Program
DX: R30.0 Dysuria (principal)

== ENCOUNTER → 2023-09-03 | Outpatient (CLI) | payer OTHER | LOC: M WUC 10:08 | PROVIDERS: ATTEND Nurse Practitioner Family | DX: M25.571 Pain in right ankle and joints of right foot (principal) ==

== ENCOUNTER → 2023-09-19 | Outpatient (REF) | payer OTHER ==
[2023-09-19 19:54] LABS: CHLAMYDIA DNA AMPLIFICATION NEGATIVE (NEGATIVE); GC DNA AMPLIFICATION NEGATIVE (NEGATIVE)
== END ==
LOC: M LAB REF 18:00
PROVIDERS: ATTEND Physician Assistant
DX: R53.83 Other fatigue (principal); R30.0 Dysuria; R10.30 Lower abdominal pain, unspecified

== ENCOUNTER → 2023-09-19 | Outpatient (CLI) | payer OTHER ==
[2023-09-19 12:28] LABS: BASO # 0.1 10^3/uL (0.0-0.2); BASO % 0.4 % (0.0-1.0); EOS # 0.3 10^3/uL (0.0-0.5); EOS % 2.6 % (0.0-3.0); HEMATOCRIT 40.1 % (36.0-47.0); LYMPH # 2.5 10^3/uL (1.5-5.0); LYMPH % 19.5 % (24.0-44.0); MEAN CORPUSCULAR HEMOGLOBIN 29.6 pg (27.0-33.0); MEAN CORPUSCULAR HGB CONC 32.4 g/dl (32.0-36.5); MEAN CORPUSCULAR VOLUME 91.3 fl (80.0-96.0); MONO # 0.9 10^3/uL (0.0-0.8); NEUTROPHILS % 70.1 % (36.0-66.0); PLATELET COUNT, AUTOMATED 268 10^3/uL (150-450); RED BLOOD COUNT 4.39 10^6/uL (4.00-5.40); WHITE BLOOD COUNT 12.8 10^3/uL (4.0-10.0)
[2023-09-19 12:58] LABS: ALBUMIN 3.2 G/DL (3.2-5.2); ALKALINE PHOSPHATASE 85 U/L (46-116); ALT/SGPT 23 U/L (7.0-40); AST/SGOT 11 U/L (<34); BILIRUBIN,TOTAL 0.3 MG/DL (0.3-1.2); BLOOD UREA NITROGEN 8 MG/DL (9-23); CALCIUM LEVEL 8.1 MG/DL (8.5-10.1); CARBON DIOXIDE LEVEL 26 MMOL/L (20-31); CHLORIDE LEVEL 104 MMOL/L (98-107); CREATININE FOR GFR 0.69 MG/DL (0.55-1.30); GLOMERULAR FILTRATION RATE > 60.0 (>60); GLUCOSE, FASTING 91 MG/DL (60-100); HCG, SERUM QUANTITATIVE < 2.6 MIU/ML (<4.2); POTASSIUM SERUM 4.1 MMOL/L (3.5-5.1); SODIUM LEVEL 139 MMOL/L (136-145); TOTAL PROTEIN 6.8 G/DL (5.7-8.2)
[2023-09-19 12:59] LABS: THYROID STIMULATING HORMONE 3.626 uIU/ML (0.55-4.78)
[2023-09-19 13:00] LABS: FREE T4 0.82 NG/DL (0.89-1.76)
== END ==
LOC: M LAB 11:56
PROVIDERS: ATTEND Physician Assistant
DX: R53.83 Other fatigue (principal); R10.30 Lower abdominal pain, unspecified; R30.0 Dysuria

== ENCOUNTER 2023-09-22 19:35 | Emergency (ER) | payer OTHER ==
[~2023-09-22] VITALS: Ht 165.1 cm; Wt 124.3 kg
[2023-09-22 19:36] VITALS: BP 128/64; TEMP 99; O2SAT 100
[2023-09-22 20:20] LABS: BASO # 0.1 10^3/uL (0.0-0.2); BASO % 0.4 % (0.0-1.0); EOS # 0.2 10^3/uL (0.0-0.5); EOS % 1.5 % (0.0-3.0); HEMATOCRIT 42.5 % (36.0-47.0); HEMOGLOBIN 13.8 g/dl (12.0-15.5); LYMPH # 2.5 10^3/uL (1.5-5.0); LYMPH % 19.4 % (24.0-44.0); MEAN CORPUSCULAR HEMOGLOBIN 29.4 pg (27.0-33.0); MEAN CORPUSCULAR HGB CONC 32.5 g/dl (32.0-36.5); MEAN CORPUSCULAR VOLUME 90.6 fl (80.0-96.0); MONO % 7.7 % (2.0-8.0); NEUTROPHILS # 8.9 10^3/uL (1.5-8.5); NEUTROPHILS % 70.4 % (36.0-66.0); PLATELET COUNT, AUTOMATED 300 10^3/uL (150-450); RED BLOOD COUNT 4.69 10^6/uL (4.00-5.40); WHITE BLOOD COUNT 12.7 10^3/uL (4.0-10.0)
[2023-09-22 20:42] LABS: CK-MB VALUE MASS < 1.0 NG/ML (<3.6)
[2023-09-22 20:44] LABS: BLOOD UREA NITROGEN 12 MG/DL (9-23); CALCIUM LEVEL 8.9 MG/DL (8.5-10.1); CARBON DIOXIDE LEVEL 27 MMOL/L (20-31); CHLORIDE LEVEL 104 MMOL/L (98-107); CPK CREATINE PHOSPHOKINASE 112 U/L (34-145); CREATININE FOR GFR 0.73 MG/DL (0.55-1.30); GLOMERULAR FILTRATION RATE > 60.0 (>60); GLUCOSE, FASTING 85 MG/DL (60-100); MB/CK RELATIVE INDEX 0.89 (< OR =4); POTASSIUM SERUM 4.2 MMOL/L (3.5-5.1); SODIUM LEVEL 140 MMOL/L (136-145)
[2023-09-23] MEDS ORDERED: ALBU8.5H (08:55)
[2023-09-23] MEDS ORDERED: ESCITALOPRAM (08:55)
[2023-09-23] MEDS ORDERED: ALBU2.5V10 NEB (10:27)
== END 2023-09-22 22:25 | disposition left against medical advice (07) ==
LOC: M ED 19:35
DX: Z53.21 Procedure and treatment not carried out due to patient leaving prior to being seen by health care provider (principal)

== ENCOUNTER 2023-09-23 08:41 | Emergency (ER) | payer OTHER ==
[~2023-09-23] VITALS: Ht 165.1 cm; Wt 124.0 kg
[2023-09-23] MEDS ORDERED: ALBU8.5H (08:55)
[2023-09-23] MEDS ORDERED: ESCITALOPRAM (08:55)
[2023-09-23] MEDS ORDERED: ALBU2.5V10 NEB (10:27)
[2023-09-23 10:34] VITALS: BP 142/71; TEMP 101.2; O2SAT 100
[2023-09-23] MEDS ORDERED: ACETAMINOPHEN 325 MG TAB PO ONE (10:35)
== END 2023-09-23 11:10 | disposition home or self-care (01) ==
LOC: M ED 08:41
DX: J06.9 Acute upper respiratory infection, unspecified (principal); F41.9 Anxiety disorder, unspecified; F32.A Depression, unspecified; Z88.1 Allergy status to other antibiotic agents; Z88.8 Allergy status to other drugs, medicaments and biological substances

== ENCOUNTER 2023-09-25 21:50 | Emergency (ER) | payer OTHER ==
[~2023-09-25] VITALS: Ht 165.1 cm; Wt 125.0 kg
[~2023-09-25 21:50] MED LIST changes: +ALBU2.5V10 NEB; +ALBU8.5H; +ESCITALOPRAM
[2023-09-25 21:55] VITALS: BP 114/76; TEMP 98.6; O2SAT 99
[2023-09-25 22:34] LABS: BASO % 0.4 % (0.0-1.0); EOS # 0.1 10^3/uL (0.0-0.5); EOS % 1.9 % (0.0-3.0); HEMATOCRIT 43.9 % (36.0-47.0); HEMOGLOBIN 14.2 g/dl (12.0-15.5); LYMPH # 1.8 10^3/uL (1.5-5.0); LYMPH % 26.6 % (24.0-44.0); MEAN CORPUSCULAR HEMOGLOBIN 29.3 pg (27.0-33.0); MEAN CORPUSCULAR HGB CONC 32.3 g/dl (32.0-36.5); MEAN CORPUSCULAR VOLUME 90.5 fl (80.0-96.0); MONO # 0.9 10^3/uL (0.0-0.8); MONO % 13.2 % (2.0-8.0); NEUTROPHILS # 3.9 10^3/uL (1.5-8.5); NEUTROPHILS % 57.6 % (36.0-66.0); PLATELET COUNT, AUTOMATED 248 10^3/uL (150-450); RED BLOOD COUNT 4.85 10^6/uL (4.00-5.40); WHITE BLOOD COUNT 6.8 10^3/uL (4.0-10.0)
[2023-09-25 23:02] LABS: BLOOD UREA NITROGEN 10 MG/DL (9-23); CALCIUM LEVEL 9.3 MG/DL (8.5-10.1); CARBON DIOXIDE LEVEL 29 MMOL/L (20-31); CHLORIDE LEVEL 102 MMOL/L (98-107); CK-MB VALUE MASS < 1.0 NG/ML (<3.6); CPK CREATINE PHOSPHOKINASE 126 U/L (34-145); CREATININE FOR GFR 0.88 MG/DL (0.55-1.30); GLOMERULAR FILTRATION RATE > 60.0 (>60); GLUCOSE, FASTING 100 MG/DL (60-100); MB/CK RELATIVE INDEX 0.79 (< OR =4); POTASSIUM SERUM 4.1 MMOL/L (3.5-5.1); SODIUM LEVEL 136 MMOL/L (136-145)
== END 2023-09-25 22:40 | disposition left against medical advice (07) ==
LOC: EDBD 21:50 → M ED 21:50
DX: Z53.21 Procedure and treatment not carried out due to patient leaving prior to being seen by health care provider (principal)

== ENCOUNTER 2023-10-23 00:34 | Emergency (ER) | payer OTHER ==
[~2023-10-23] VITALS: Ht 165.1 cm; Wt 127.2 kg
[2023-10-23] MEDS ORDERED: ACET-683 PO (00:43)
[2023-10-23] MEDS ORDERED: IBUP80TA PO (00:43)
[2023-10-23] MEDS ORDERED: ESCITALOPRAM (00:43)
[2023-10-23] MEDS ORDERED: KETOROLAC 30 MG/ML 1ML VIAL IV ONE (07:25)
[2023-10-23 08:06] LABS: BASO % 0.2 % (0.0-1.0); EOS # 0.2 10^3/uL (0.0-0.5); EOS % 0.9 % (0.0-3.0); HEMATOCRIT 43.4 % (36.0-47.0); HEMOGLOBIN 14.1 g/dl (12.0-15.5); LYMPH % 15.9 % (24.0-44.0); MEAN CORPUSCULAR HEMOGLOBIN 29.3 pg (27.0-33.0); MEAN CORPUSCULAR HGB CONC 32.5 g/dl (32.0-36.5); MONO # 1.1 10^3/uL (0.0-0.8); MONO % 5.8 % (2.0-8.0); NEUTROPHILS # 14.3 10^3/uL (1.5-8.5); NEUTROPHILS % 76.8 % (36.0-66.0); PLATELET COUNT, AUTOMATED 277 10^3/uL (150-450); RED BLOOD COUNT 4.82 10^6/uL (4.00-5.40); WHITE BLOOD COUNT 18.6 10^3/uL (4.0-10.0)
[2023-10-23] MEDS ORDERED: ISOVUE-370 76% 100ML VIAL As Ordered ONE (08:10)
[2023-10-23 08:32] LABS: ERYTHROCYTE SEDIMENTATION RATE 60 mm/hr (0-20)
[2023-10-23] MEDS ORDERED: CLINDAMYCIN 900 MG in IV 1 EA IV ONE (08:40)
[2023-10-23] MEDS ORDERED: dexAMETHasone 20MG/5ML VIAL IV ONE (08:45)
[2023-10-23] MEDS ORDERED: ONDANSETRON 4MG 2ML VIAL IV ONE (09:10)
[2023-10-23] MEDS ORDERED: CLEO300C2 PO (09:22)
[2023-10-23] MEDS ORDERED: ONDA4TAB6 PO (09:22)
[2023-10-23] MEDS ORDERED: IBUP-1022 PO (09:22)
[2023-10-23 09:56] VITALS: BP 125/61; TEMP 98.8; O2SAT 100
== END 2023-10-23 10:01 | disposition home or self-care (01) ==
LOC: M ED 00:34
DX: J03.90 Acute tonsillitis, unspecified (principal); J01.90 Acute sinusitis, unspecified; J45.909 Unspecified asthma, uncomplicated; F41.9 Anxiety disorder, unspecified; F32.A Depression, unspecified; Z88.0 Allergy status to penicillin; Z79.899 Other long term (current) drug therapy
CPT/HCPCS: 70491; 80047; 84702; 85025; 85652; 86140; 96365; 96375; 99284; J0737; J1100; J1885; J2405; Q9967

== ENCOUNTER → 2023-11-17 | Outpatient (REF) ==
[~2023-11-17] MED LIST changes: +ACET-683 PO; +CLEO300C2 PO; +IBUP80TA PO; +ONDA4TAB6 PO
== END ==
LOC: M PLAIMG 10:14
PROVIDERS: ATTEND Internal Medicine
DX: R52 Pain, unspecified (principal)

== ENCOUNTER → 2023-11-18 | Outpatient (CLI) | payer OTHER | LOC: M RAD 13:19 | PROVIDERS: ATTEND Family Medicine | DX: E04.1 Nontoxic single thyroid nodule (principal) ==

== ENCOUNTER → 2023-11-19 | Outpatient (REF) | payer OTHER ==
[2023-11-19 17:24] LABS: HCG, SERUM QUANTITATIVE < 2.6 MIU/ML (<4.2)
[2023-11-19 17:58] LABS: HIV 1&2 SCREEN NEGATIVE (NEGATIVE)
[2023-11-19 18:06] LABS: HEPATITIS C VIRUS ABY INDEX < 0.02 INDEX (<0.8)
== END ==
LOC: M LAB REF 16:27
PROVIDERS: ATTEND Advanced Practice Midwife
DX: Z01.419 Encounter for gynecological examination (general) (routine) without abnormal findings (principal); N91.1 Secondary amenorrhea

== ENCOUNTER → 2023-12-24 | Outpatient (REF) | payer OTHER | LOC: M LAB REF 12:48 | PROVIDERS: ATTEND Physician Assistant | DX: J02.9 Acute pharyngitis, unspecified (principal) ==

== ENCOUNTER → 2023-12-31 | Outpatient (REF) | payer OTHER | LOC: M SFHCLERA 15:21 | PROVIDERS: ATTEND Physician Assistant | DX: E66.01 Morbid (severe) obesity due to excess calories (principal); F41.8 Other specified anxiety disorders; B36.0 Pityriasis versicolor; L91.8 Other hypertrophic disorders of the skin; E65 Localized adiposity ==

== ENCOUNTER → 2024-03-23 | Outpatient (REF) | payer OTHER | LOC: M LAB REF 16:35 | PROVIDERS: ATTEND Physician Assistant | DX: R30.0 Dysuria (principal) ==

== ENCOUNTER → 2024-04-14 | Outpatient (REF) | payer OTHER ==
[~2024-04-14] MED LIST changes: +ONDA-282 PO; -ONDA4TAB6 PO
== END ==
LOC: M SFHCDERM 12:57
PROVIDERS: ATTEND Nurse Practitioner Family
DX: L91.8 Other hypertrophic disorders of the skin (principal)

== ENCOUNTER 2024-06-20 15:41 | Emergency (ER) | payer OTHER ==
[~2024-06-20] VITALS: Ht 165.1 cm; Wt 132.7 kg
[2024-06-20 15:41] VITALS: TEMP 97.6
[2024-06-20] MEDS ORDERED: FAMO20TA PO (15:51)
[2024-06-20 17:47] VITALS: BP 123/68; O2SAT 99
[2024-06-20] MEDS: CEPHALEXIN 500 MG CAP PO ONE (18:00)
[2024-06-20] MEDS ORDERED: CEPH500C PO (18:11)
== END 2024-06-20 18:37 | disposition home or self-care (01) ==
LOC: M ED 15:41
DX: N60.02 Solitary cyst of left breast (principal); J45.909 Unspecified asthma, uncomplicated; F41.9 Anxiety disorder, unspecified; F32.A Depression, unspecified; F90.9 Attention-deficit hyperactivity disorder, unspecified type; Z79.899 Other long term (current) drug therapy; Z88.0 Allergy status to penicillin; Z88.1 Allergy status to other antibiotic agents

== ENCOUNTER → 2024-08-09 | Outpatient (REF) | payer OTHER, MEDICAID ==
[~2024-08-09] MED LIST changes: +CEPH500C PO; +FAMO20TA PO
== END ==
LOC: M LAB REF 09:46
PROVIDERS: ATTEND Physician Assistant
DX: R35.0 Frequency of micturition (principal)

== ENCOUNTER 2025-03-12 00:10 | Emergency (ER) | payer OTHER ==
[~2025-03-12] VITALS: Ht 165.1 cm; Wt 132.3 kg
[2025-03-12] MEDS: DOXYCYCLINE HYCLATE 100MG TABLET PO ONE (05:08)
[2025-03-12 05:15] LABS: BASO # 0.1 10^3/uL (0.0-0.2); BASO % 0.4 % (0.0-1.0); EOS # 0.5 10^3/uL (0.0-0.5); EOS % 3.8 % (0.0-3.0); HEMATOCRIT 39.4 % (36.0-47.0); HEMOGLOBIN 12.8 g/dl (12.0-15.5); LYMPH # 2.9 10^3/uL (1.5-5.0); MEAN CORPUSCULAR HEMOGLOBIN 29.1 pg (27.0-33.0); MEAN CORPUSCULAR HGB CONC 32.5 g/dl (32.0-36.5); MEAN CORPUSCULAR VOLUME 89.5 fl (80.0-96.0); MONO % 6.9 % (2.0-8.0); NEUTROPHILS # 9.5 10^3/uL (1.5-8.5); NEUTROPHILS % 67.5 % (36.0-66.0); PLATELET COUNT, AUTOMATED 293 10^3/uL (150-450)
[2025-03-12] MEDS ORDERED: TRAM50TA2 PO (05:19)
[2025-03-12] MEDS ORDERED: DOXY-441 PO (05:19)
[2025-03-12 05:39] VITALS: BP 127/83; TEMP 97.3; O2SAT 99
[2025-03-12 05:46] LABS: C REACTIVE PROTEIN QUANTITATIV 3.44 MG/DL (<1.0)
[2025-03-12 05:47] LABS: BLOOD UREA NITROGEN 10 MG/DL (9-23); CALCIUM LEVEL 8.7 MG/DL (8.5-10.1); CARBON DIOXIDE LEVEL 27 MMOL/L (20-31); CHLORIDE LEVEL 107 MMOL/L (98-107); CREATININE FOR GFR 0.72 MG/DL (0.55-1.30); GLOMERULAR FILTRATION RATE > 90.0 (>60); GLUCOSE, FASTING 91 MG/DL (60-100); POTASSIUM SERUM 4.2 MMOL/L (3.5-5.1); SODIUM LEVEL 142 MMOL/L (136-145)
== END 2025-03-12 05:41 | disposition home or self-care (01) ==
LOC: M ED 00:10
DX: N64.52 Nipple discharge (principal); N63.20 Unspecified lump in the left breast, unspecified quadrant; K21.9 Gastro-esophageal reflux disease without esophagitis; F32.A Depression, unspecified; Z88.1 Allergy status to other antibiotic agents; Z91.09 Other allergy status, other than to drugs and biological substances; Z79.2 Long term (current) use of antibiotics; Z79.899 Other long term (current) drug therapy

== ENCOUNTER → 2025-06-09 | Outpatient (CLI) | payer OTHER ==
[~2025-06-09] MED LIST changes: +DOXY-441 PO; +TRAM50TA2 PO
== END ==
LOC: M WUC 11:40
PROVIDERS: ATTEND Nurse Practitioner Family
DX: M79.645 Pain in left finger(s) (principal)

== ENCOUNTER 2025-07-09 06:23 | Emergency (ER) | payer OTHER ==
[~2025-07-09] VITALS: Ht 165.1 cm; Wt 129.6 kg
[~2025-07-09 06:23] MED LIST changes: -IBUP-1022 PO; +IBUP600T42 PO
[2025-07-09] MEDS ORDERED: CLEO300C2 PO (07:20)
[2025-07-09 07:39] VITALS: BP 143/79; TEMP 97.8; O2SAT 97
== END 2025-07-09 07:44 | disposition home or self-care (01) ==
LOC: M ED 06:23
DX: K04.7 Periapical abscess without sinus (principal); J45.909 Unspecified asthma, uncomplicated; K21.9 Gastro-esophageal reflux disease without esophagitis; F90.9 Attention-deficit hyperactivity disorder, unspecified type; Z88.1 Allergy status to other antibiotic agents; Z91.048 Other nonmedicinal substance allergy status; Z79.2 Long term (current) use of antibiotics; Z79.899 Other long term (current) drug therapy

== ENCOUNTER 2025-07-14 23:23 | Inpatient (IN) | payer OTHER ==
[~2025-07-14] VITALS: Ht 165.1 cm; Wt 129.8 kg
[2025-07-15] MEDS: ACETAMINOPHEN 500 MG TAB PO ONE (05:39)
[2025-07-15 06:32] VITALS: TEMP 97.6
[2025-07-15 07:50] LABS: BASO # 0.1 10^3/uL (0.0-0.2); BASO % 0.5 % (0.0-1.0); EOS # 0.3 10^3/uL (0.0-0.5); EOS % 2.2 % (0.0-3.0); LYMPH # 2.7 10^3/uL (1.5-5.0); LYMPH % 17.9 % (24.0-44.0); MONO # 1.1 10^3/uL (0.0-0.8); MONO % 7.1 % (2.0-8.0); NEUTROPHILS # 11.0 10^3/uL (1.5-8.5); NEUTROPHILS % 71.9 % (36.0-66.0); PLATELET COUNT, AUTOMATED 352 10^3/uL (150-450)
[2025-07-15 08:11] LABS: CALCIUM LEVEL 9.1 MG/DL (8.5-10.1); CARBON DIOXIDE LEVEL 25 MMOL/L (20-31); CHLORIDE LEVEL 103 MMOL/L (98-107); CREATININE FOR GFR 0.73 MG/DL (0.55-1.30); GLOMERULAR FILTRATION RATE > 90.0 (>60); POTASSIUM SERUM 4.3 MMOL/L (3.5-5.1); SODIUM LEVEL 134 MMOL/L (136-145)
[2025-07-15] MEDS: NS (Normal Saline) 0.9% 1,000 ML IV ONE ×2 (08:56→11:24)
[2025-07-15] MEDS: CEFTAROLINE FOSAMIL 600 MG in DEXTROSE 5% (D5W) ADV/MINI-BAG 50 ML IV ONE (08:56)
[2025-07-15] MEDS ORDERED: ISOVUE-370 76% 100 ML VIAL As Ordered ONE (09:27)
[2025-07-15] MEDS ORDERED: MIRTAZAPINE 7.5 MG PER 1/2 TABLET PO PRN (10:10)
[2025-07-15] MEDS ORDERED: ACETAMINOPHEN 325 MG TAB PO PRN (11:05)
[2025-07-15] MEDS ORDERED: ONDA-282 PO (11:09)
[2025-07-15] MEDS ORDERED: CLEO300C2 PO (11:09)
[2025-07-15] MEDS ORDERED: VENTAER INH (11:09)
[2025-07-15] MEDS ORDERED: HOME MED LIST COMPLETE! XX SCH (11:10)
[2025-07-15] MEDS: FAMOTIDINE 20 MG TAB PO SCH (11:24)
[2025-07-15] MEDS ORDERED: NALOXONE INJ 0.4 MG/1 ML VIAL IV PRN (12:05)
[2025-07-15] MEDS ORDERED: PERCOCET 5MG/325MG TAB PO PRN ×2 (12:05)
[2025-07-15 15:02] VITALS: BP 145/72; O2SAT 98
[2025-07-15] MEDS ORDERED: OLANZapine INTRAMUSCULAR 10MG VIAL IM SCH (21:00)
[2025-07-15] MEDS ORDERED: CEFTAROLINE FOSAMIL 600 MG in DEXTROSE 5% (D5W) ADV/MINI-BAG 50 ML IV SCH (21:00)
[2025-07-16] MEDS ORDERED: CEPH500C PO (16:42)
[2025-07-16] MEDS ORDERED: CLIN-250 PO (16:42)
== END 2025-07-15 15:12 | disposition left against medical advice (07) | DRG 385 ==
LOC: M ED 23:23 → M ED INP 07-15 09:22
PROVIDERS: ADMIT General Practice; ATTEND General Practice
DX: N64.52 Nipple discharge (principal); E87.1 Hypo-osmolality and hyponatremia; Z68.42 Body mass index [BMI] 45.0-49.9, adult; J45.909 Unspecified asthma, uncomplicated; F32.A Depression, unspecified; F41.9 Anxiety disorder, unspecified; K21.9 Gastro-esophageal reflux disease without esophagitis; R59.0 Localized enlarged lymph nodes; N63.20 Unspecified lump in the left breast, unspecified quadrant; E66.813 Obesity, class 3; Z90.49 Acquired absence of other specified parts of digestive tract; Z87.891 Personal history of nicotine dependence; R00.0 Tachycardia, unspecified

== ENCOUNTER → 2025-07-20 | Outpatient (CLI) | payer OTHER ==
[~2025-07-20] MED LIST changes: +CLIN-250 PO; +OXYC1TAB23 PO; +VENTAER INH
== END ==
LOC: M ONCR 13:48
PROVIDERS: ATTEND General Practice
DX: C50.412 Malignant neoplasm of upper-outer quadrant of left female breast (principal); Z90.49 Acquired absence of other specified parts of digestive tract; Z88.1 Allergy status to other antibiotic agents; Z88.8 Allergy status to other drugs, medicaments and biological substances; Z91.048 Other nonmedicinal substance allergy status; Z79.899 Other long term (current) drug therapy
CPT/HCPCS: 99205; G2212

== ENCOUNTER 2025-08-10 09:48 | Outpatient (RCR) | payer OTHER ==
[~2025-08-10 09:48] MED LIST changes: +AZIT-12 PO; +MUCI1TAB18 PO
[2025-08-11] MEDS ORDERED: LEVO1TAB40 PO ×2 (08:12→15:50)
[2025-08-11] MEDS ORDERED: PANTOPRAZOLE 40MG VIAL IV ONE (19:40)
[2025-08-11] MEDS ORDERED: NS (Normal Saline) 0.9% 1,000 ML IV ONE (19:40)
[2025-08-11] MEDS ORDERED: ONDANSETRON 4MG/2ML VIAL IV ONE (19:40)
[2025-08-14] MEDS ORDERED: NYST1POW3 TOP (13:34)
[2025-08-23] MEDS ORDERED: TRIA1CR80 TOP (15:01)
[2025-08-30] MEDS ORDERED: NYST-38 SS (08:44)
[2025-08-30] MEDS ORDERED: AZIT500T5 PO (08:44)
== END 2025-08-25 ==
LOC: M ONCR 09:48
PROVIDERS: ATTEND General Practice
DX: Z51.0 Encounter for antineoplastic radiation therapy (principal); C50.112 Malignant neoplasm of central portion of left female breast

== ENCOUNTER 2025-08-11 17:00 | Emergency (ER) | payer OTHER ==
[~2025-08-11] VITALS: Ht 165.1 cm; Wt 129.8 kg
[~2025-08-11 17:00] MED LIST changes: +LEVO1TAB40 PO
[2025-08-11 17:05] VITALS: TEMP 97.9
[2025-08-11 19:45] VITALS: BP 129/70
[2025-08-11 20:13] LABS: BASO # 0.0 10^3/uL (0.0-0.2); BASO % 0.4 % (0.0-1.0); EOS # 0.4 10^3/uL (0.0-0.5); EOS % 4.3 % (0.0-3.0); LYMPH # 1.1 10^3/uL (1.5-5.0); LYMPH % 11.1 % (24.0-44.0); MONO # 0.2 10^3/uL (0.0-0.8); MONO % 1.5 % (2.0-8.0); NEUTROPHILS # 8.0 10^3/uL (1.5-8.5); NEUTROPHILS % 81.9 % (36.0-66.0); PLATELET COUNT, AUTOMATED 285 10^3/uL (150-450)
[2025-08-11 20:27] LABS: INR 0.94
[2025-08-11 20:39] LABS: ALT/SGPT 25 U/L (7.0-40); AST/SGOT 33 U/L (<34); CALCIUM LEVEL 8.9 MG/DL (8.5-10.1); CARBON DIOXIDE LEVEL 26 MMOL/L (20-31); CHLORIDE LEVEL 103 MMOL/L (98-107); CREATININE FOR GFR 0.61 MG/DL (0.55-1.30); GLOMERULAR FILTRATION RATE > 90.0 (>60); POTASSIUM SERUM 4.5 MMOL/L (3.5-5.1); SODIUM LEVEL 138 MMOL/L (136-145)
[2025-08-11] MEDS: NS 500 ML IV ONE (20:40)
[2025-08-11] MEDS ORDERED: ISOVUE-370 76% 100 ML VIAL As Ordered ONE (20:45)
[2025-08-11] MEDS: PANTOPRAZOLE 40MG VIAL IV ONE (21:01)
[2025-08-11] MEDS: ONDANSETRON 4MG 2ML VIAL IV ONE (21:01)
[2025-08-12 00:30] VITALS: O2SAT 97
== END 2025-08-12 01:27 | disposition home or self-care (01) ==
LOC: M ED 17:00
DX: K29.00 Acute gastritis without bleeding (principal); T45.1X5A Adverse effect of antineoplastic and immunosuppressive drugs, initial encounter; K21.9 Gastro-esophageal reflux disease without esophagitis; K57.30 Diverticulosis of large intestine without perforation or abscess without bleeding; C50.912 Malignant neoplasm of unspecified site of left female breast; J45.909 Unspecified asthma, uncomplicated; Z87.891 Personal history of nicotine dependence; Z79.899 Other long term (current) drug therapy; Z88.1 Allergy status to other antibiotic agents; Z88.0 Allergy status to penicillin; Z91.89 Other specified personal risk factors, not elsewhere classified
CPT/HCPCS: 36415; 74177; 80048; 80053; 80076; 83690; 83735; 85025; 85610; 85730; 87486; 87581; 87633; 87798; 93005; 93041; 96361; 96374; 96375; 99285; G0463; J2405; J2470; Q9967

== ENCOUNTER → 2025-08-23 | Outpatient (CLI) | payer OTHER ==
[~2025-08-23] MED LIST changes: +AZIT500T5 PO; +NYST-38 SS; +NYST1POW3 TOP; +TRIA1CR80 TOP
== END ==
LOC: M CARPUL 15:07
PROVIDERS: ATTEND Student in an Organized Health Care Education/Training Program
DX: C50.919 Malignant neoplasm of unspecified site of unspecified female breast (principal); I36.1 Nonrheumatic tricuspid (valve) insufficiency; I31.39 Other pericardial effusion (noninflammatory)

== ENCOUNTER → 2025-08-23 | Outpatient (CLI) | payer OTHER ==
[~2025-08-23] MED LIST changes: -AZIT500T5 PO; -NYST-38 SS
== END ==
LOC: M ONCR 14:16
PROVIDERS: ATTEND General Practice
DX: C50.112 Malignant neoplasm of central portion of left female breast (principal); L73.8 Other specified follicular disorders; Z92.21 Personal history of antineoplastic chemotherapy; Z92.3 Personal history of irradiation

== ENCOUNTER → 2025-09-19 | Outpatient (CLI) | payer OTHER ==
[~2025-09-19] MED LIST changes: +AZIT500T5 PO; +DOXY-440 PO; +DOXY100C3 PO; +LEVO75TAB PO; +LIDO30CR18 TOP; +NYST-38 SS; +OXYC-517 PO; +PRED20TA PO
== END ==
LOC: M RAD 11:18
PROVIDERS: ATTEND Student in an Organized Health Care Education/Training Program
DX: C50.912 Malignant neoplasm of unspecified site of left female breast (principal)

== ENCOUNTER → 2025-10-02 | Outpatient (CLI) | payer OTHER ==
[~2025-10-02] MED LIST changes: +AMOX875T2 PO; +FLUC-1 PO; +VALA500T5 PO
== END ==
LOC: M RAD 12:22
PROVIDERS: ATTEND Student in an Organized Health Care Education/Training Program
DX: R06.02 Shortness of breath (principal)